=== PATIENT | female | born 1955 | race Two or more races ===

== ENCOUNTER 2021-11-26 12:19 | Outpatient (CLI) | payer OTHER | END 2021-11-26 12:21 | disposition home or self-care (01) | LOC: LAB 12:19 | PROVIDERS: ATTEND Specialist | DX: I10 Essential (primary) hypertension (principal); I12.9 Hypertensive chronic kidney disease with stage 1 through stage 4 chronic kidney disease, or unspecified chronic kidney disease ==

== ENCOUNTER 2022-01-01 07:03 | Day surgery (SDC) | payer OTHER ==
[~2022-01-01 07:03] MED LIST: LISINOPRIL20 MG
== END 2022-01-01 13:45 | disposition home or self-care (01) ==
LOC: CIR.AMB 07:03
PROVIDERS: ATTEND Obstetrics & Gynecology
DX: N85.8 Other specified noninflammatory disorders of uterus (principal); Z20.822 Contact with and (suspected) exposure to COVID-19; Z86.16 Personal history of COVID-19; N18.30 Chronic kidney disease, stage 3 unspecified; I12.0 Hypertensive chronic kidney disease with stage 5 chronic kidney disease or end stage renal disease